=== PATIENT | female | born 2000 | race Caucasian/White ===

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

== ENCOUNTER 2021-05-31 18:59 | Inpatient (IN) ==
[2021-05-31] MEDS ORDERED: Naloxone 0.4 MG/ML INJ IVP PRN (20:10)
[2021-05-31] MEDS ORDERED: Ringers Solution, Lactated 1,000 ML IVC SCH (20:15)
[2021-05-31 20:43] LABS: Basophils % 0.2 %; Eosinophils % 0.2 %; Hematocrit 30.8 % (35.3-44.9); Hemoglobin 9.9 g/dL (11.5-15.4); Immature Granulocytes % 0.4 % (0-4); Lymphocytes % 11.8 %; Mean Corpuscular HGB Conc 32.1 g/dL (31.6-35.5); Mean Corpuscular Hemoglobin 28.3 pg (28.0-33.3); Mean Platelet Volume 11.5 fL (9.4-12.4); Monocytes # 1.1 K/mcL (0.0-1.3); Monocytes % 6.5 %; Neutrophils # 13.4 K/mcL (1.6-8.9); Platelet Count 461 K/mcL (140-400); Red Cell Distribution Width 13.2 % (11.5-14.5); Segmented Neutrophils % 80.9 %; White Blood Count 16.6 K/mcL (4.3-11.1)
[2021-05-31] MEDS ORDERED: Oxytocin 20 units/ LR 1000 mL 20 UNIT/1,000 ML BAG IVC ONE (20:55)
[2021-05-31] MEDS ORDERED: Oxytocin 20 units/ LR 1000 mL 20 UNIT/1,000 ML BAG IVC SCH ×2 (21:15→22:38)
[2021-05-31 21:45] LABS: Influenza A PCR Negative (Negative); Influenza B PCR Negative (Negative); Resp. Syncytial Virus PCR Negative (Negative)
[2021-05-31 22:00] LABS: SARS-CoV-2 by PCR (In House) Negative (Negative)
[2021-05-31] MEDS ORDERED: Benzocaine/Menthol 56 GM AEROSOL SPRAY TP PRN (22:38)
[2021-05-31] MEDS ORDERED: *HR* LORazepam 2 MG/ML VIAL IVP PRN (22:38)
[2021-05-31] MEDS ORDERED: Measles/Mumps/Rubella Vacc 0.5 ML VIAL SQ PRN (22:38)
[2021-05-31] MEDS ORDERED: hydrOXYzine pamoate 25 MG CAPSULE PO PRN (22:38)
[2021-05-31] MEDS ORDERED: Rho Immune Globulin 1,500 UNIT SYRINGE IM PRN (22:38)
[2021-05-31] MEDS ORDERED: Ondansetron ODT 4 MG TAB.RAPDIS SL PRN (22:38)
[2021-05-31] MEDS: Acetaminophen 325 MG TABLET PO SCH (22:55)
[2021-06-01] MEDS ORDERED: Ibuprofen 600 MG TABLET PO SCH (00:19)
[2021-06-01 00:30] VITALS: O2SAT 97
[2021-06-01 07:20] VITALS: BP 95/68; PULSE 83; TEMP 98.2
[2021-06-01] MEDS ORDERED: Prenatal Vit/FA 1 EACH TABLET PO SCH (09:00)
[2021-06-01] MEDS: Acetaminophen 325 MG TABLET PO SCH (10:29)
[2021-06-01 11:24] LABS: Amphetamine Screen,Urine Positive ng/mL (Cutoff=1000); Barbiturate Screen,Urine Negative ng/mL (Cutoff=200); Benzodiazepines Screen,Urine Negative ng/mL (Cutoff=200); Cannabinoid Screen,Urine Negative ng/mL (Cutoff = 50); Cocaine Screen,Urine Negative ng/mL (Cutoff= 300); Opiate Screen,Urine Negative ng/mL (Cutoff=300); Phencyclidine Screen,Urine Negative ng/mL (Cutoff=25)
== END 2021-06-01 15:56 | disposition home or self-care (01) | DRG 561 ==
LOC: 1NENULAB 18:59 → 1NENUOBS 22:37
PROVIDERS: ADMIT Registered Nurse; ATTEND Registered Nurse